=== PATIENT | female | born 1945 | race Caucasian/White ===

== ENCOUNTER 2017-02-23 13:45 | Emergency (ER) | payer OTHER, MEDICARE ==
--- NOTE | 2017-02-23 13:57 | CPEKG ---
Heart Rate: 78 RR Interval: 769 P-R Interval: 176 QRSD Interval: 86 QT Interval: 392 QTC Interval: 447 P Tatamy: 64 QRS Tatamy: 11 T Wave Tatamy: 51 EKG Severity - NORMAL ECG - EKG Impression: SINUS RHYTHM Electronically Signed By: Chidi Young 26-Feb-2017 12:03:47
--- NOTE | 2017-02-23 13:58 | EDPHY ---
H & P Stated Complaint: fall from standing, facial injuries Source: Patient Exam Limitations: No limitations - Personal History Current Tetanus/Diphtheria Vaccine: Yes Current Tetanus Diphtheria and Acellular Pertussis (TDAP): Yes Tetanus Vaccine Date: < 10 years - Medical/Surgical History Hx Asthma: No Hx Chronic Respiratory Disease: No Hx Diabetes: No Hx Cardiac Disease: Yes Hx Renal Disease: No Hx Cirrhosis: No Hx Alcoholism: No Hx HIV/AIDS: No Hx Splenectomy or Spleen Trauma: No Other PMH: MED HX-HTN,ANXIETY,ARTHRITIS AND GERD. SURG-IRA,back DISC, appy, tonsils - Family History Significant Family History: No pertinent family hx - Social History Smoking Status: Never smoked Alcohol Use: Rarely Drug Use: None Time Seen by Provider: 02/23/17 13:53 HPI/ROS: 71-year-old female presents complaining of the suddenly finding herself on the ground. She states she had [place] her daughter off at the airport and was driving home from the airport she drove into her driveway to [place], began to get out of the car and then the next thing she remembers is being on the ground face 1st. She is unsure if she had a loss of consciousness. She denies having any prodrome prior to this fall. She complains of facial bruising and nose pain as well. She began to have a headache after her fall. She has a hx of chronic back pain, with spinal surgery 4 years ago, she occasionally takes hdrocodone, last took it 2 days ago after a long day on her feet cooking. She denies chest pain, she denies shortness of breath. (Meseret Sams) - Physical Exam Exam: 71-year-old female alert and oriented in mild distress secondary to facial trauma, afebrile Normocephalic, abrasions and ecchymosis to right forehead right cheek, nose with small superficial laceration over bridge, non gaping No septal hematoma Extraocular muscles intact, pupils reactive bilaterally Anicteric Neck supple nontender no ecchymosis no swelling Lungs clear to auscultation bilaterally Heart regular rate and rhythm without murmur rub or gallop Abdomen nondistended bowel sounds present soft nontender no ecchymosis Back, no swelling no ecchymosis no CVA tenderness no step-offs Extremities no cyanosis clubbing or edema no gross deformities no evidence of trauma Neuro alert and oriented x3, no focal deficits, no pronator drift no facial droop (Meseret Sams) Constitutional: Initial Vital Signs Temperature (C) 37.5 C 02/23/17 13:54 Heart Rate 76 02/23/17 13:54 Respiratory Rate 20 02/23/17 13:54 Blood Pressure 154/90 H 02/23/17 13:54 O2 Sat (%) 93 02/23/17 13:54 O2 Delivery Mode Room Air Allergies/Adverse Reactions: No Known Allergies Allergy (Verified 02/23/17 13:52) Home Medications: Medication Instructions Recorded Aspirin [Aspirin 81mg (*)] 81 mg PO DAILY 08/02/10 Esomeprazole Mag Trihydrate 40 mg PO DAILY 08/02/10 [Nexium] FLUoxetine [Prozac 20 MG (*)] 20 mg PO DAILY18 08/02/10 Levothyroxine [Synthroid 25 mcg 25 mcg PO DAILY06 08/02/10 (*)] Calcium Carb W/Vit D [Calcium Carb 500 mg PO BIDMEAL 05/28/13 W/Vit D 500/200 (*)] Pravastatin Sodium [Pravachol] 40 mg PO DAILY18 05/28/13 Zolpidem Tartrate [Ambien 5MG (*)] 5 mg PO HS 05/28/13 Valsartan 01/10/14 Diovan 02/23/17 HYDROCODONE BIT/ACETAMINOPHEN 02/23/17 Medical Decision Making - Diagnostics Imaging Results: Imaging Impressions Chest X-Ray 02/23/17 14:13 Impression: 1. Mild increase in subsegmental atelectasis at the left base. Consider interstitial infiltrate less likely. Face CT 02/23/17 14:14 Impression: There is no acute intracranial abnormality identified on this unenhanced CT evaluation. UNENHANCED CT SCAN OF THE FACIAL BONES Technique: Unenhanced CT imaging of the facial bones was obtained from the level of the frontal calvarium caudally to the submental space, with images reformatted at 1.50 mm increments, and reviewed in bone and soft tissue windows. The DFOV is 14.9 cm. Parasagittal and paracoronal reconstructed images are reviewed on the workstation. A dose reduction protocol is used. Findings: As was mentioned above, there is a fracture involving the distal aspect of the nasal bone, with minimal displacement inferiorly, best seen on sagittal reconstructed series 15, images 45-49. There is associated paranasal soft tissue swelling. There is no involvement of the nasal maxillary spines. There is no nasal septal deviation, and the paranasal sinuses remain patent. There is no evidence of an orbital rim fracture. The zygomatic arches are intact. The temporomandibular joints, as well as the supracondylar, ramus, and mental symphysis portions of the mandible are intact. The medial and lateral pterygoid plates are intact. Impression: Fracture involving the distal nasal bone(s), with paranasal soft tissue swelling. UNENHANCED CT SCAN OF THE CERVICAL SPINE Technique: A multidetector unenhanced helical CT scan was obtained from the clivus caudally through the upper thoracic spine, with images reformatted at 1.50 mm increments, and are reviewed in soft tissue, bone, and lung windows. Parasagittal and paracoronal reconstructed images are reviewed on the workstation. The DFOV is 17.0 cm. A dose reduction protocol was used. Findings: The cervical vertebral body heights and posterior alignments are preserved. There are areas of slight trabecular "mottling," which may reflect some bone demineralization, although correlation with a serum CBC and an SPEP are suggested, and it may also be worthwhile to obtain a DEXA scan to better quantify bone mineral density. There is no acute fracture, or facet malalignment. There is [id number]-[id number] degenerative disk space narrowing at C4- C5 with tiny traction osteophytes, and some facet hypertrophy resulting in mild bilateral neural foraminal narrowing. The interspinous distances are normal. There is partial ossification of the nuchal ligament at the C5-C6 level. The craniocervical junction is normal. The predental space, and the atlantoaxial lateral mass alignment is normal. The base and the tip of the dens are normal. There is no central canal stenosis, neural foraminal impingement, or focal disk herniation identified. There is no prevertebral or epidural hematoma identified. The prevertebral soft tissues are normal, as are the lung apices. Impression: 1. There is no acute cervical osseous abnormality. 2. Slight trabecular mottling, which may reflect bone demineralization although correlation with a serum CBC an SPEP are suggested, as well as a DEXA scan. 3. Mild/moderate degenerative disk space narrowing at C4-C5 with tiny traction osteophytes and facet hypertrophy resulting in mild bilateral neural foraminal stenosis. If there is further clinical concern regarding the patient's symptoms, correlative MR imaging could be considered, if otherwise not contraindicated. Findings were discussed with Meseret Sams MD at 15:47, on 02/23/2017. Head CT 02/23/17 14:14 Impression: There is no acute intracranial abnormality identified on this unenhanced CT evaluation. UNENHANCED CT SCAN OF THE FACIAL BONES Technique: Unenhanced CT imaging of the facial bones was obtained from the level of the frontal calvarium caudally to the submental space, with images reformatted at 1.50 mm increments, and reviewed in bone and soft tissue windows. The DFOV is 14.9 cm. Parasagittal and paracoronal reconstructed images are reviewed on the workstation. A dose reduction protocol is used. Findings: As was mentioned above, there is a fracture involving the distal aspect of the nasal bone, with minimal displacement inferiorly, best seen on sagittal reconstructed series 15, images 45-49. There is associated paranasal soft tissue swelling. There is no involvement of the nasal maxillary spines. There is no nasal septal deviation, and the paranasal sinuses remain patent. There is no evidence of an orbital rim fracture. The zygomatic arches are intact. The temporomandibular joints, as well as the supracondylar, ramus, and mental symphysis portions of the mandible are intact. The medial and lateral pterygoid plates are intact. Impression: Fracture involving the distal nasal bone(s), with paranasal soft tissue swelling. UNENHANCED CT SCAN OF THE CERVICAL SPINE Technique: A multidetector unenhanced helical CT scan was obtained from the clivus caudally through the upper thoracic spine, with images reformatted at 1.50 mm increments, and are reviewed in soft tissue, bone, and lung windows. Parasagittal and paracoronal reconstructed images are reviewed on the workstation. The DFOV is 17.0 cm. A dose reduction protocol was used. Findings: The cervical vertebral body heights and posterior alignments are preserved. There are areas of slight trabecular "mottling," which may reflect some bone demineralization, although correlation with a serum CBC and an SPEP are suggested, and it may also be worthwhile to obtain a DEXA scan to better quantify bone mineral density. There is no acute fracture, or facet malalignment. There is auai-ye-[id number] degenerative disk space narrowing at C4- C5 with tiny traction osteophytes, and some facet hypertrophy resulting in mild bilateral neural foraminal narrowing. The interspinous distances are normal. There is partial ossification of the nuchal ligament at the C5-C6 level. The craniocervical junction is normal. The predental space, and the atlantoaxial lateral mass alignment is normal. The base and the tip of the dens are normal. There is no central canal stenosis, neural foraminal impingement, or focal disk herniation identified. There is no prevertebral or epidural hematoma identified. The prevertebral soft tissues are normal, as are the lung apices. Impression: 1. There is no acute cervical osseous abnormality. 2. Slight trabecular mottling, which may reflect bone demineralization although correlation with a serum CBC an SPEP are suggested, as well as a DEXA scan. 3. Mild/moderate degenerative disk space narrowing at C4-C5 with tiny traction osteophytes and facet hypertrophy resulting in mild bilateral neural foraminal stenosis. If there is further clinical concern regarding the patient's symptoms, correlative MR imaging could be considered, if otherwise not contraindicated. Findings were discussed with Meseret Sams MD at 15:47, on 02/23/2017. Cervical Spine CT 02/23/17 14:15 Impression: There is no acute intracranial abnormality identified on this unenhanced CT evaluation. UNENHANCED CT SCAN OF THE FACIAL BONES Technique: Unenhanced CT imaging of the facial bones was obtained from the level of the frontal calvarium caudally to the submental space, with images reformatted at 1.50 mm increments, and reviewed in bone and soft tissue windows. The DFOV is 14.9 cm. Parasagittal and paracoronal reconstructed images are reviewed on the workstation. A dose reduction protocol is used. Findings: As was mentioned above, there is a fracture involving the distal aspect of the nasal bone, with minimal displacement inferiorly, best seen on sagittal reconstructed series 15, images 45-49. There is associated paranasal soft tissue swelling. There is no involvement of the nasal maxillary spines. There is no nasal septal deviation, and the paranasal sinuses remain patent. There is no evidence of an orbital rim fracture. The zygomatic arches are intact. The temporomandibular joints, as well as the supracondylar, ramus, and mental symphysis portions of the mandible are intact. The medial and lateral pterygoid plates are intact. Impression: Fracture involving the distal nasal bone(s), with paranasal soft tissue swelling. UNENHANCED CT SCAN OF THE CERVICAL SPINE Technique: A multidetector unenhanced helical CT scan was obtained from the clivus caudally through the upper thoracic spine, with images reformatted at 1.50 mm increments, and are reviewed in soft tissue, bone, and lung windows. Parasagittal and paracoronal reconstructed images are reviewed on the workstation. The DFOV is 17.0 cm. A dose reduction protocol was used. Findings: The cervical vertebral body heights and posterior alignments are preserved. There are areas of slight trabecular "mottling," which may reflect some bone demineralization, although correlation with a serum CBC and an SPEP are suggested, and it may also be worthwhile to obtain a DEXA scan to better quantify bone mineral density. There is no acute fracture, or facet malalignment. There is sbuw-[id number] degenerative disk space narrowing at C4- C5 with tiny traction osteophytes, and some facet hypertrophy resulting in mild bilateral neural foraminal narrowing. The interspinous distances are normal. There is partial ossification of the nuchal ligament at the C5-C6 level. The craniocervical junction is normal. The predental space, and the atlantoaxial lateral mass alignment is normal. The base and the tip of the dens are normal. There is no central canal stenosis, neural foraminal impingement, or focal disk herniation identified. There is no prevertebral or epidural hematoma identified. The prevertebral soft tissues are normal, as are the lung apices. Impression: 1. There is no acute cervical osseous abnormality. 2. Slight trabecular mottling, which may reflect bone demineralization although correlation with a serum CBC an SPEP are suggested, as well as a DEXA scan. 3. Mild/moderate degenerative disk space narrowing at C4-C5 with tiny traction osteophytes and facet hypertrophy resulting in mild bilateral neural foraminal stenosis. If there is further clinical concern regarding the patient's symptoms, correlative MR imaging could be considered, if otherwise not contraindicated. Findings were discussed with Meseret Sams MD at 15:47, on 02/23/2017. ED Course/Re-evaluation: Patient seen and evaluated for a fall while getting out of her car, with no prodrome, concerning for syncope. EKG normal sinus rhythm CT maxillofacial- nasal fracture CT brain-neg CT cervical spine-djd Lab CBC within normal limits Troponin negative BMP within normal limits D-dimer, PT PTT pending Impression syncope facial contusions nose bridge laceration Plan Patient endorsed to Dr. Mills at shift change, pending D-dimer, PT PTT, if dimer elevated CT angio chest. If workup negative for pulmonary embolus, patient plans to leave against medical advice. She has been encouraged to stay for an observation admission for syncope. ( Meseret Sams) 1614: D-dimer reviewed. Negative. Patient understands risks about leaving against medical advice and understands that I recommend she gets admitted for syncope. However she declined. She would like to go home. Return precautions discussed with her. Additionally she understands the risk of leaving against medical advice and not being hospitalized for syncope. Unexplained. (Kt Mills) - Data Points Laboratory Results: Laboratory Results 02/23/17 14:15 02/23/17 14:15 02/23/17 02/23/17 02/23/17 15:25 14:15 14:15 WBC RBC Hgb Hct MCV MCH MCHC RDW Plt Count MPV Neut % (Auto) Lymph % (Auto) Drew % (Auto) Eos % (Auto) Baso % (Auto) Nucleat RBC Rel Count Absolute Neuts (auto) Absolute Lymphs (auto) Absolute Monos (auto) Absolute Eos (auto) Absolute Basos (auto) Absolute Nucleated RBC Immature Gran % Immature Gran # PT 12.8 SEC SEC (12.0-15.0) INR 0.97 (0.83-1.16) APTT 33.2 SEC SEC (23.0-38.0) D-Dimer 0.30 ug/mLFEU ug/mLFEU (0.00-0.50) Sodium Potassium Chloride Carbon Dioxide Anion Gap BUN Creatinine Estimated GFR Glucose Calcium Total Bilirubin AST ALT Alkaline Phosphatase Troponin I NT-Pro-B Natriuret Pep Total Protein Albumin TSH 1.270 uIU/mL uIU/mL (0.465-4.680) Urine Color YELLOW Urine Appearance CLEAR Urine pH 7.0 (5.0-7.5) Ur Specific [place] <= 1.005 (1.002-1.030) Urine Protein NEGATIVE (NEGATIVE) Urine Ketones NEGATIVE (NEGATIVE) Urine Blood NEGATIVE (NEGATIVE) Urine Nitrate NEGATIVE (NEGATIVE) Urine Bilirubin NEGATIVE (NEGATIVE) Urine Urobilinogen 0.2 EU EU (0.2-1.0) Ur Leukocyte Esterase NEGATIVE (NEGATIVE) Urine Glucose NEGATIVE (NEGATIVE) 02/23/17 02/23/17 14:15 14:15 WBC 8.15 10^3/uL 10^3/uL (3.80-9.50) RBC 4.78 10^6/uL 10^6/uL (4.18-5.33) Hgb 14.5 g/dL g/dL (12.6-16.3) Hct 42.1 % % (38.0-47.0) MCV 88.1 fL fL (81.5-99.8) MCH 30.3 pg pg (27.9-34.1) MCHC 34.4 g/dL g/dL (32.4-36.7) RDW 13.3 % % (11.5-15.2) Plt Count 311 10^3/uL 10^3/uL (150-400) MPV 8.7 fL fL (8.7-11.7) Neut % (Auto) 75.9 % H % (39.3-74.2) Lymph % (Auto) 16.4 % % (15.0-45.0) Drew % (Auto) 6.3 % % (4.5-13.0) Eos % (Auto) 0.6 % % (0.6-7.6) Baso % (Auto) 0.6 % % (0.3-1.7) Nucleat RBC Rel Count 0.0 % % (0.0-0.2) Absolute Neuts (auto) 6.18 10^3/uL 10^3/uL (1.70-6.50) Absolute Lymphs (auto) 1.34 10^3/uL 10^3/uL (1.00-3.00) Absolute Monos (auto) 0.51 10^3/uL 10^3/uL (0.30-0.80) Absolute Eos (auto) 0.05 10^3/uL 10^3/uL (0.03-0.40) Absolute Basos (auto) 0.05 10^3/uL 10^3/uL (0.02-0.10) Absolute Nucleated RBC 0.00 10^3/uL 10^3/uL (0-0.01) Immature Gran % 0.2 % % (0.0-1.1) Immature Gran # 0.02 10^3/uL 10^3/uL (0.00-0.10) PT INR APTT D-Dimer Sodium 140 mEq/L mEq/L (134-144) Potassium 4.1 mEq/L mEq/L (3.5-5.2) Chloride 99 mEq/L mEq/L (97-110) Carbon Dioxide 26 mEq/l mEq/l (22-31) Anion Gap 15 mEq/L mEq/L (8-16) BUN 24 mg/dL H mg/dL (7-23) Creatinine 0.8 mg/dL mg/dL (0.6-1.0) Estimated GFR > 60 Glucose 94 mg/dL mg/dL (70-100) Calcium 10.1 mg/dL mg/dL (8.5-10.4) Total Bilirubin 0.6 mg/dL mg/dL (0.1-1.4) AST 26 IU/L IU/L (14-46) ALT 39 IU/L IU/L (9-52) Alkaline Phosphatase 93 IU/L IU/L (38-126) Troponin I < 0.012 ng/mL ng/mL (0.000-0.034) NT-Pro-B Natriuret Pep 125 pg/mL pg/mL (0-125) Total Protein 6.9 g/dL g/dL (6.3-8.2) Albumin 4.0 g/dL g/dL (3.5-5.0) TSH Cancelled Urine Color Urine Appearance Urine pH Ur Specific [place] Urine Protein Urine Ketones Urine Blood Urine Nitrate Urine Bilirubin Urine Urobilinogen Ur Leukocyte Esterase Urine Glucose Medications Given: Discontinued Medications Acetaminophen (Tylenol) 1,000 mg PO EDNOW ONE Stop: 02/23/17 15:41 Last Admin: 02/23/17 15:46 Dose: 1,000 mg Sodium Chloride (Ns) 1,000 mls @ 0 mls/hr IV ONCE ONE PRN Reason: Wide Open Stop: 02/23/17 15:27 Last Admin: 02/23/17 15:38 Dose: 1,000 mls Departure - Departure Disposition: Against Medical Advice Condition: Fair Instructions: Syncope (ED) Additional Instructions: 1. We do recommend he get hospitalized. 2. Return immediately to emergency room if you have any further symptoms questions or concerns. Referrals: Yanet Klein MD [Primary Care Provider] - As per Instructions
[2017-02-23 14:22] LABS: PLATELET COUNT 311 10^3/uL (150-400)
[2017-02-23] MEDS ORDERED: NS 1,000 ML IV ONE (15:26)
[2017-02-23] MEDS ORDERED: ACETAMINOPHEN 500 MG TAB PO ONE (15:40)
[2017-02-23 16:05] LABS: INR 0.97 (0.83-1.16); PROTIME(PATIENT) 12.8 SEC (12.0-15.0)
[2017-02-23 16:22] VITALS: BP 133/38; PULSE 84; RESP 18; TEMP 97.7; O2SAT 95
== END 2017-02-23 16:23 | disposition left against medical advice (07) ==
LOC: CED 13:45
PROC: 3E0337Z Introduction of Electrolytic and Water Balance Substance into Peripheral Vein, Percutaneous Approach (ICD-10-PCS; principal; 2017-02-23)
DX: R55 Syncope and collapse (principal); Z79.82 Long term (current) use of aspirin
CPT/HCPCS: 70450-PO; 70486-PO; 71046-PO; 72125-PO; 80053-PO; 81003-PO; 83880-PO; 84443-PO; 84484-PO; 85025-PO; 85378-PO; 85610-PO; 85730-PO